=== PATIENT | female | born 1955 | race Caucasian/White ===

== ENCOUNTER 2023-12-15 08:40 | Emergency (ER) | payer MEDICARE, SELFPAY ==
[2023-12-15 09:05] VITALS: BP 100/60; PULSE 107; RESP 14; TEMP 36.5; O2SAT 98
--- NOTE | 2023-12-15 09:29 | ED.URI ---
HPI - URI/Sore Throat General Chief Complaint: Upper Respiratory Infection Stated Complaint: Sinus Time Seen by Provider: 12/15/23 09:11 Source: patient and RN notes reviewed Mode of arrival: ambulatory Limitations: no limitations History of Present Illness HPI Narrative: Patient presents today with a 2 week history of cough that is worse at night, clogged ears, congestion, rhinorrhea, fatigue. Denies shortness of breath. Reports she ran a fever initially for the 1st several days, but this has since resolved. She has been taking Sudafed, Mucinex with some relief. States for the 1st week she was taking care of her granddaughter who had influenza. No history of asthma or COPD. Related Data Home Medications Medication Instructions Recorded Confirmed fluoxetine 10 mg capsule 10 mg PO DAILY 12/15/23 12/15/23 trazodone 50 mg tablet mg 12/15/23 Allergies Allergy/AdvReac Type Severity Reaction Status Date / Time minocycline Allergy Unknown Unknown Uncoded 12/15/23 09:37 Review of Systems Review of Systems: CONSTITUTIONAL: Denies body aches, fever, chills, or sweats.+ fatigue EYES: Denies visual changes, redness, or discharge. ENT: Denies sore throat.+ congestion, rhinorrhea, clogged ears. CARDIOVASCULAR: Denies chest pain, palpitations, or edema. RESPIRATORY: Denies dyspnea.+ cough GASTROINTESTINAL: Denies abdominal pain, nausea, vomiting, or diarrhea. GENITOURINARY: Denies dysuria or hematuria. SKIN: Denies rash, itching, or wounds. MUSCULOSKELETAL: Denies back pain, joint pain, or myalgia. NEUROLOGIC: Denies headache, numbness, tingling, or weakness. PSYCH: Denies depression or anxiety. PMFSH Comments At time of signature, I have reviewed and agree with nursing past medical, surgical, social and family history unless otherwise noted. Please see nursing chart for further information. There is no relevant family history pertinent to the presenting complaint Exam Narrative: GENERAL: Mildly ill-appearing, well-nourished, and in no acute distress. HEAD: Normocephalic, atraumatic. EYES: EOMI. No redness or drainage. Conjunctivae normal. ENT: Mucous membranes pink and moist. Nares congested with rhinorrhea. TMs normal bilaterally. Throat normal. Uvula midline. NECK: Normal AROM. Supple. No lymphadenopathy. CHEST: No respiratory distress. Clear to auscultation. HEART: Regular rate and rhythm. No murmur appreciated. EXTREMITIES: Normal range of motion. No edema. SKIN: Warm, dry, no rash. Capillary refill normal. Normal skin turgor. NEURO: No focal deficits. Alert and oriented x3. Gait steady. PSYCH: Normal affect. No signs of depression or anxiety. Course Course Level of Care: Express Care Visit Vital Signs Vital signs: Vital Signs Temperature 97.7 F 12/15/23 09:05 Pulse Rate 107 H 12/15/23 09:05 Respiratory Rate 14 12/15/23 09:05 Blood Pressure 100/60 12/15/23 09:05 Pulse Oximetry 98 12/15/23 09:05 Oxygen Delivery Room Air 12/15/23 09:05 Temperature 97.7 F 12/15/23 09:05 Pulse Rate 107 H 12/15/23 09:05 Respiratory Rate 14 12/15/23 09:05 Blood Pressure 100/60 12/15/23 09:05 Pulse Oximetry 98 12/15/23 09:05 Oxygen Delivery Room Air 12/15/23 09:05 Reviewed MDM - URI/Sore Throat MDM Narrative Medical decision making narrative: Patient will be treated for with Augmentin and prednisone for sinusitis and bronchitis. Anticipatory guidance given. Differential Diagnosis Differential diagnosis: Likely upper respiratory infection, sinusitis, viral infection, bronchitis and other (Pneumonia) Critical Care Time Critical Care Time Critical Care Time: No Discharge Plan Discharge Clinical Impression: Bronchitis Sinusitis Qualifiers: Sinusitis location: unspecified location Chronicity: acute Recurrence: non-recurrent Qualified Code(s): J01.90 - Acute sinusitis, unspecified Patient Disposition: Home, Self-Care Condition: Stable Instructi
== END 2023-12-15 09:40 | disposition home or self-care (01) ==
PROVIDERS: Emergency Provider Nurse Practitioner
DX: J40 Bronchitis, not specified as acute or chronic (principal); J01.90 Acute sinusitis, unspecified; F41.9 Anxiety disorder, unspecified; F32.A Depression, unspecified
CPT/HCPCS: 99203; G0463

== ENCOUNTER 2023-12-24 12:36 | Emergency (ER) | payer MEDICARE, SELFPAY ==
[2023-12-24 12:38] VITALS: BP 128/72; PULSE 90; RESP 18; TEMP 36.8; O2SAT 99
[2023-12-24 13:05] LABS: Basophils Absolute Auto 0.1 K/mm3 (0.0-0.1); Basophils Percent Auto 0.8 % (0.2-1.2); Eosinophils Absolute Auto 0.4 K/mm3 (0-0.3); Eosinophils Percent Auto 3.5 % (0-4.4); Hematocrit 37.9 % (37.0-47.0); Hemoglobin 12.3 g/dL (12.0-15.0); Immature Granulocyte Absolute 0.13 K/mm3 (0.00-0.031); Immature Granulocyte Percent A 1.3 % (0-0.5); Lymphocytes Absolute Auto 2.18 K/mm3 (0.9-3.2); Lymphocytes Percent Auto 21.9 % (18.3-44.2); Mean Corpuscular HGB Conc 32.5 g/dl (32-36); Mean Corpuscular Hemoglobin 32.2 pg (26-34); Mean Corpuscular Volume 99.2 fl (80-100); Mean Platelet Volume 9.1 fl (7.4-10.4); Monocytes Percent Auto 10.4 % (2.6-8.5); Neutrophils Absolute Auto 6.2 K/mm3 (1.3-6.7); Neutrophils Percent Auto 62.1 % (45.5-73.1); Platelet Count Result 398 k/mm3 (150-375); Red Blood Count 3.82 M/mm3 (4.2-5.4); Red Cell Distribution Width 12.7 % (11.5-14.5); White Blood Count 9.9 K/mm3 (4.5-10.0)
[2023-12-24 13:08] VITALS: BP 126/78; PULSE 90; RESP 16; TEMP 36.7; O2SAT 99
[2023-12-24 13:14] LABS: Bacteria Urine None Seen /hpf; RBC Urine 0-2 /hpf (0-2); Squamous Epithelial Cell Urine Occasional /hpf (Few); WBC Urine 0-5 /hpf (0-3)
[2023-12-24 13:16] LABS: Alanine Aminotransferase 19 U/L (6-35); Albumin Level 3.6 g/dL (3.5-5.1); Alkaline Phosphatase 66 U/L (38-126); Anion Gap 0 mmol/L (8-16); Aspartate Amino Transferase 35 U/L (14-36); Bilirubin,Total 0.8 mg/dL (0.2-1.3); Blood Urea Nitrogen 26 mg/dL (7-17); Calcium 9.2 mg/dL (8.4-10.2); Carbon Dioxide 35 mmol/L (22-30); Chloride 104 mmol/L (98-107); Estimated CRCL calculation 46 ml/min; Estimated Glomerular Filt Rate 55; Glucose 110 mg/dL (65-110); Lipase 158 U/L (23-300); Potassium 3.5 mmol/L (3.4-5.0); Sodium 139 mmol/L (137-145)
[2023-12-24 13:17] LABS: Appearance Urine Clear (Clear); Color Urine Yellow (Yellow)
[2023-12-24 13:18] LABS: Add Urine Microscopic? YES; Bilirubin Urine Negative (Negative); Blood Urine Negative (Negative); Glucose Urine UA Negative (Negative); Ketones Urine Negative (Negative); Leukocyte Esterase Ur Negative LEU/UL (Negative); Nitrate Urine Negative (Negative); Protein Urine Trace (Negative); Specific Grav Ur 1.025 (1.010-1.020); Urobilinogen Urine 0.2 mg/dL (0.2-1.0)
[2023-12-24 14:01] VITALS: BP 128/74; PULSE 90; RESP 16; TEMP 36.6; O2SAT 98
[2023-12-24] MEDS: SODIUM CHLORIDE 0.9% IV 1,000 ML 999 ML IV CONT ×2 (14:05→14:06)
--- NOTE | 2023-12-24 14:08 | ED.NAVMDI ---
HPI - Nausea/Vomiting/Diarrhea General Chief complaint: Nausea/Vomiting/Diarrhea Stated complaint: cdiff Time Seen by Provider: 12/24/23 13:05 Source: patient Mode of arrival: ambulatory Limitations: no limitations History of Present Illness HPI Narrative: This is a 68-year-old female who presents to the ED with chief complaint of diarrhea x3 weeks. Patient states this all started when she was diagnosed with the flu initially. She has had or loose and runny stools for the past couple weeks that do not seem to be improving. She states that she developed a little bit of a cough and runny nose and was prescribed amoxicillin urgent care last week. She continues to have diarrhea so she is afraid that she may have C diff. Reports history of C diff 8 years ago. Denies fevers, chills, Abdominal pain, nausea, vomiting, chest pain, shortness of breath. Related Data Home Medications Medication Instructions Recorded Confirmed fluoxetine 10 mg capsule 10 mg PO DAILY 12/15/23 12/15/23 trazodone 50 mg tablet mg 12/15/23 Allergies Allergy/AdvReac Type Severity Reaction Status Date / Time minocycline Allergy Unknown Unknown Verified 12/24/23 13:52 clindamycin Allergy Unknown Verified 12/24/23 12:38 Review of Systems Review of Systems: All systems as dictated in HPI Exam Narrative: GENERAL: Well-appearing, well-nourished, and in no acute distress. HEAD: Normocephalic, atraumatic. EYES: PERRLA and EOMI. ENT: Nares clear, no rhinorrhea or epistaxis. Mucous membranes moist. Oropharynx without tonsillar hypertrophy exudate or other lesions. NECK: Supple. No adenopathy or masses. CHEST: No respiratory distress. Clear to auscultation. No wheezes rales or rhonchi HEART: Regular rate and rhythm. No murmur heard. Normal peripheral pulses. ABDOMEN: Soft, nontender, nondistended, normal active bowel sounds. MSK: Normal range of motion. No edema. SKIN: Warm, dry, no rash. NEURO: Alert and oriented x3. No focal deficits. PSYCH: Normal mood and affect. Course Vital Signs Vital signs: Vital Signs Temperature 98.2 F 12/24/23 12:38 Pulse Rate 90 12/24/23 12:38 Respiratory Rate 18 12/24/23 12:38 Blood Pressure 128/72 12/24/23 12:38 Pulse Oximetry 99 12/24/23 12:38 Oxygen Delivery Room Air 12/24/23 12:38 Temperature 98.0 F 12/24/23 15:04 Pulse Rate 79 12/24/23 15:04 Respiratory Rate 16 12/24/23 15:04 Blood Pressure 138/75 12/24/23 15:04 Pulse Oximetry 99 12/24/23 15:04 Oxygen Delivery Room Air 12/24/23 12:38 MDM - Nausea/Vomiting/Diarrhea MDM Narrative Medical decision making narrative: This is a 68-year-old female who presents to the ED with chief complaint of diarrhea for the past 3 weeks. Recent Course of amoxicillin felt was having diarrhea before this. Vitals are normal. Exam is benign. No abdominal pain. Lab work shows normal white count, normal CBC. Bicarb slightly elevated at 35 BUN elevated as well at 26. No Elevated anion gap present. overall these findings are consistent with consistent diarrhea. UA shows elevated specific gravity but otherwise normal. Presentation consistent with diarrhea and dehydration. ordered this C diff test but she was unable to give us any stool sample here. Discussed with the patient the very low likelihood of having C diff with normal vitals, white count and inability to give a sample. she feels comfortable with discharge at this time. Pt will be discharged in stable condition. Return precautions given and supportive measures discussed. Pt is understanding and agreeable with plan for discharge and follow-up with PCP. Lab Data 12/24/23 12:55 12/24/23 12:55 Labs: Lab Results 12/24/23 Range/Units 12:55 WBC 9.9 (4.5-10.0) K/mm3 RBC 3.82 L (4.2-5.4) M/mm3 Hgb 12.3 (12.0-15.0) g/dL Hct 37.9 (37.0-47.0) % MCV 99.2 (80-100) fl MCH 32.2 (26-34) pg MCHC 32.5 (32
[2023-12-24 14:31] VITALS: BP 141/73; PULSE 88; RESP 18; O2SAT 99
[2023-12-24 15:04] VITALS: BP 138/75; PULSE 79; RESP 16; TEMP 36.7; O2SAT 99
== END 2023-12-24 15:43 | disposition home or self-care (01) ==
PROVIDERS: Emergency Medicine; Emergency Provider Physician Assistant
DX: K52.9 Noninfective gastroenteritis and colitis, unspecified (principal)
CPT/HCPCS: 36415; 80053; 81001; 83690; 85025; 96360; 96361; 99284; J7030